=== PATIENT | female | born 1965 | race Caucasian/White ===

== ENCOUNTER 2018-01-20 18:49 | Emergency (ER) | payer BC ==
--- NOTE | 2018-01-20 21:40 | EDPHY ---
H & P Stated Complaint: right knee pain "it went out" no injury Time Seen by Provider: 01/20/18 21:40 HPI/ROS: HPI CHIEF COMPLAINT: Right knee pain. HISTORY OF PRESENT ILLNESS: Patient very pleasant 52-year-old female, she has a history recent right hip surgery in [place]. She resides in [place] and is here for her son's graduation. She presents emergency room with right knee pain. She states that she was walking to graduation her right knee gave out. She did not directly landed on her right knee however she states that she now has pain. She is requesting pain medicine. She is able to bear weight. But she states that her knee feels "loose". Denies chest pain or shortness of breath. Denies direct falling on her knee. No ankle pain. Denies any hip discomfort. This is the same size she has had hip surgery on. She denies calf pain or calf swelling. Past Medical History: Bipolar disorder Past Surgical History: Recent right hip surgery x2 weeks. Social History: Lives in [place] denies drugs alcohol tobacco. Here for graduation. Family History: Noncontributory ROS REVIEW OF SYSTEMS: A comprehensive 10 point review of systems is otherwise negative aside from elements mentioned in the history of present illness. Exam Constitutional appears well nontoxic no acute distress, triage nursing summary reviewed, vital signs reviewed, awake/alert. Eyes normal conjunctivae and sclera, EOMI, PERRLA. HENT normal inspection, atraumatic, moist mucus membranes, no epistaxis, neck supple/ no meningismus, no raccoon eyes. Respiratory clear to auscultation bilaterally, normal breath sounds, no respiratory distress, no wheezing. Cardiovascular rate normal, regular rhythm, no murmur, no edema, distal pulses normal. Gastrointestinal soft, non-tender, no rebound, no guarding, normal bowel sounds, no distension, no pulsatile mass. Genitourinary no CVA tenderness. Musculoskeletal right lower extremity: Gaudencio hose in place. However neurovascular intact good distal pulse. Good cap refill. Tender palpation over the anterior knee. No appreciable significant swelling on exam. No laxity. Sensation intact. No signs of compartment syndrome. no midline vertebral tenderness, full range of motion, no calf swelling, no tenderness of extremities, no meningismus, good pulses, neurovascularly intact. Skin pink, warm, & dry, no rash, skin atraumatic. Neurologic awake, alert and oriented x 3, AAOx3, moves all 4 extremities equally, motor intact, sensory intact, CN II-XII intact, normal cerebellar, normal vision, normal speech. Psychiatric normal mood/affect. Heme/Lymph/Immune no lymphadenopathy. Differential Diagnosis: Includes but is not limited to in a particular order knee sprain, knee contusion, ligamentous injury, meniscal injury, tendon injury Medical Decision Making: Plan for this patient x-ray four view of the right knee. Ice, patient requesting pain medicine will give a dose of OxyContin, knee immobilizer crutches. Re-evaluation: X-ray the right knee reviewed. Osteoarthritis. No evidence of fracture. Plan for this patient anti-inflammatory pain medicine, ice, elevation, recommend crutches, knee immobilizer. When she returns home I recommend she follows up with Orthopedics. Disc provided. Return precautions discussed. Source: Patient - Personal History LMP (Females 10-55): Post Menopausal Current Tetanus/Diphtheria Vaccine: Yes Current Tetanus Diphtheria and Acellular Pertussis (TDAP): Yes - Medical/Surgical History Hx Asthma: Yes Hx Chronic Respiratory Disease: No Hx Diabetes: No Hx Cardiac Disease: No Hx Renal Disease: No Hx Cirrhosis: No Hx Alcoholism: No Hx HIV/AIDS: No Hx Splenectomy or Spleen Trauma: No Other PMH: right hip surgery 01/02/18, gallbladder removed - Social History Smoking Status: Current some day smoker Constitutional: Initial Vital Signs Temperature (C) 36.8 C 01/20/18 19:10 Heart Rate 106 H 01/20/18 19:10 Respiratory Rate 16 01/20/18 19:10 Blood Pressure 138/99 H 01/20/18 19:10 O2 Sat (%) 93 01/20/18 19:10 O2 Delivery Mode Room Air Allergies/Adverse Reactions: codeine Allergy (Verified 01/20/18 19:13) Home Medications: Medication Instructions Recorded ALPRAZOLAM XR 01/20/18 Aspirin 325 mg (*) 01/20/18 Sertraline HCl 01/20/18 oxyCODONE CR 01/20/18 oxyCODONE CR [Oxycontin] 10 mg PO BID #10 tab 01/20/18 risperiDONE 01/20/18 Medical Decision Making - Diagnostics Imaging Results: Imaging Impressions Knee X-Ray 01/20/18 21:37 Impression: 1. No definite fracture or dislocation of the right knee. 2. No joint effusion. 3. Mild osteoarthritis medial compartment. - Data Points Medications Given: Discontinued Medications Oxycodone HCl (Oxycontin) 10 mg PO ONCE ONE Stop: 01/20/18 21:45 Last Admin: 01/20/18 22:15 Dose: Not Given Oxycodone HCl (Oxycodone Ir) 10 mg PO EDNOW ONE Stop: 01/20/18 21:58 Last Admin: 01/20/18 22:07 Dose: 10 mg Departure - Departure Disposition: Home, Routine, Self-Care Clinical Impression: Knee sprain Qualifiers: Encounter type: initial encounter Involved ligament of knee: unspecified ligament Laterality: right Qualified Code(s): S83.91XA - Sprain of unspecified site of right knee, initial encounter Condition: Good Instructions: Knee Sprain (ED) Additional Instructions: 1. Recommend that you ice her knee over the next 48 hr. 2. Anti-inflammatory pain medicine like Tylenol or Motrin for pain control. 3. Knee immobilizer and crutches for pain control immobilization 4. Follow up with Orthopedics when to return to [place]. 5. Return emergency room if there is worsening symptoms questions or concerns. Referrals: NONE *PRIMARY CARE P,. [Primary Care Provider] - As per Instructions Prescriptions: oxyCODONE CR [Oxycontin] 10 mg PO BID #10 tab
[2018-01-20] MEDS ORDERED: oxyCODONE IR 5 MG TAB PO ONE (21:57)
[2018-01-20 23:51] VITALS: BP 130/90
== END 2018-01-20 23:50 | disposition home or self-care (01) ==
DX: S83.91XA Sprain of unspecified site of right knee, initial encounter (principal); F17.200 Nicotine dependence, unspecified, uncomplicated; J45.909 Unspecified asthma, uncomplicated; Z79.82 Long term (current) use of aspirin; X58.XXXA Exposure to other specified factors, initial encounter; Y92.89 Other specified places as the place of occurrence of the external cause; Y99.8 Other external cause status; Y93.01 Activity, walking, marching and hiking
CPT/HCPCS: L1830